=== PATIENT | male | born 1995 | race Two or more races ===

== ENCOUNTER 2016-10-20 10:41 | Emergency (ER) | payer SELFPAY ==
[~2016-10-20] VITALS: Ht 167.6 cm; Wt 100.0 kg
[2016-10-20 10:42] VITALS: BP 135/91; PULSE 102; RESP 14; TEMP 97.5; O2SAT 97
--- NOTE | 2016-10-20 12:02 | PD ---
HPI Chief Complaint: Pain: Acute or Chronic Time Seen by Provider: 11:58 Travel History International Travel<30 days: No Contact w/Intl Traveler<30days: No Traveled to known affect area: No History of Present Illness HPI 27-year-old male presents to the emergency department for evaluation of several issues. First, the patient states he has had chronic back pain for several years. The last time he saw his primary care physician was 2 years ago for this. No intervention was completed and he never returned for his back pain. Patient denies any new or recent injury. He states the pain has been worsening. Patient also states he has had intermittent neck pain and intermittent headaches over the past 2 days. He currently rates a right frontal headache 5/10. He states the neck pain is resolved at this time. He states he gets intermittent paresthesias to the bilateral upper extremities, but has not at this time. He states his back pain is worse with walking. He denies any weakness or syncope. He denies any slurred speech or difficulty speaking. Patient states he has a history of headaches, but this one is different. He states the headache is resolving on its own. He took ibuprofen yesterday for his pain, but has not taken any medications today. The patient denies any history of IV drug use. No fevers or chills. No loss of bowel or bladder control. No saddle anesthesias. Patient has been ambulatory. [facility] Past Medical History Tetanus Vaccination: > 5 Years Social History Alcohol Use: Yes Tobacco Use: No Substance Use: No Allergies-Medications (Allergen,Severity, Reaction): Coded Allergies: No Known Allergies (Unverified , 10/20/16) Reported Meds & Prescriptions Reported Meds & Active Scripts Active No Active Prescriptions or Reported Medications Review of Systems Except as stated in HPI: all other systems reviewed are Neg Physical Exam Narrative GENERAL: Well-developed well-nourished male patient, ambulatory. Afebrile. SKIN: Warm and dry. HEAD: Normocephalic. Atraumatic. EYES: No scleral icterus. No injection or drainage. ENT: Mucosa pink and moist. No erythema or exudates. No uvular edema. No uvular , palatal, or tonsillar deviation. Airway patent. Nasal turbinates appear normal without nasal blood, purulent drainage or septal hematoma. Bilateral tympanic membranes are clear without erythema or perforation. NECK: Supple, trachea midline. No JVD or lymphadenopathy. CARDIOVASCULAR: Regular rate and rhythm without murmurs, gallops, or rubs. RESPIRATORY: Breath sounds equal bilaterally. No accessory muscle use. Lungs sounds are clear to auscultation. GASTROINTESTINAL: Abdomen soft, non-tender, nondistended. MUSCULOSKELETAL: No cyanosis, or edema. Bilateral upper and lower extremity strength 5/5. All extremities are neurovascularly intact. BACK: No obvious deformity. No CVA tenderness. Patient has tenderness over midline lumbar spine and bilateral lumbar paraspinal musculature. Straight leg raise is positive bilaterally. No midline cervical spine tenderness. Full range of motion of cervical spine without pain or stiffness. NEUROLOGICAL: Awake and alert. Cranial nerves II through XII intact. Motor and sensory grossly within normal limits. Five out of 5 muscle strength in all muscle groups. Normal speech. Data Data Last Documented VS Vital Signs Date Time Temp Pulse Resp B/P Pulse Ox O2 Delivery O2 Flow Rate FiO2 10/20/16 10:42 97.5 102 14 135/[address] Brain W/O Iv Contrast(Rout) (10/20/16 ) [facility] Medical Decision Making Medical Screen Exam Complete: Yes Emergency Medical Condition: Yes Medical Record Reviewed: Yes Interpretation(s) Last Impressions Head CT 10/20/16 0000 Signed Impressions: Service Date/Time: Thursday, October 20, 2016 12:25 - CONCLUSION: Normal examination. Dao Mendosa MD Differential Diagnosis Chronic back pain versus muscle strain versus muscle spasm versus tension-type headache versus migraine headache versus intracranial abnormality Narrative Course 21-year-old male presents to the emergency department for several issues including chronic back pain, neck pain, headache. Patient states the neck pain is resolved at this time. He states he currently has a right frontal headache that is 5/10 and resolving on its own. Neurological exam is nonfocal and demonstrates no acute abnormality. Patient has no chronic medical problems other than back pain. He has not followed up with his primary care physician. CT scan of the brain is ordered and pending. CT of the brain shows no acute abnormality. Patient will be given Toradol 60 mg IM and Norflex 60 mg IM. He'll be discharged prescription for diclofenac and Robaxin. He is encouraged to follow-up with his primary care physician. He is to return for any acute worsening of symptoms. Diagnosis Primary Impression: Chronic low back pain Qualified Code: M54.5 - Chronic low back pain without sciatica, unspecified back pain laterality Additional Impression: Headache Qualified Code: G44.209 - Acute non intractable tension-type headache Referrals: Primary Care Physician call for appointment Patient Instructions: Acute Headache (ED), Chronic Back Pain (ED), General Instructions Departure Forms: Tests/Procedures, Work Release Enter return to work date: Oct 22, 2016 Additional Instructions: Take diclofenac as directed as needed with food for pain. Take Robaxin as directed as needed. Follow-up with your primary care physician. Return to the emergency department for any acute worsening of symptoms. Med/Other Pt SpecificInfo: Prescription(s) given Scripts Methocarbamol (Robaxin)750 Mg [id number] Mg PO TID PRN (MUSCLE SPASM) #21 TAB Ref 0 Prov:Kate Jerez 10/20/16 Diclofenac Potassium 50 Mg Tab50 Mg PO TID PRN (PAIN SCALE 1 TO 10) #21 TAB Ref 0 Prov:Kate Jerez 10/20/16 Disposition: 01 DISCHARGE HOME Condition: Stable Kate Jerez Oct 20, 2016 12:02
--- NOTE | 2016-10-20 12:38 | RADRPT ---
EXAM DATE/TIME: 10/20/2016 12:25 [facility] COMPARISON: No previous studies available for comparison. INDICATIONS : Patient complains of neck and back pain with headache RADIATION DOSE: 40.85 CTDIvol (mGy) MEDICAL HISTORY : None SURGICAL HISTORY : None. ENCOUNTER: Initial ACUITY: 1 day PAIN SCALE: 6/10 LOCATION: distal TECHNIQUE: Multiple contiguous axial images were obtained of the head. Using automated exposure control and adj ustment of the mA and/or kV according to patient size, radiation dose was kept as low as reasonably a chievable to obtain optimal diagnostic quality images. FINDINGS: CEREBRUM: The ventricles are normal for age. No evidence of midline shift, mass lesion, hemorrhage or acute in farction. No extra-axial fluid collections are seen. POSTERIOR FOSSA: The cerebellum and brainstem are intact. The 4th ventricle is midline. The cerebellopontine angle i s unremarkable. EXTRACRANIAL: The visualized portion of the orbits is intact. SKULL: The calvaria is intact. No evidence of skull fracture. CONCLUSION: Normal examination. Dao Mendosa MD on October 20, 2016 at 12:35 Board Certified Radiologist. This report was verified electronically.
[2016-10-20] MEDS ORDERED: DICL50TA PO (12:58)
[2016-10-20] MEDS ORDERED: ROBA750T PO (12:58)
[2016-10-20] MEDS ORDERED: KETOROLAC TROMETHAMINE 60 MG/2 ML (IM) VIAL IM ONE (13:00)
[2016-10-20] MEDS ORDERED: ORPHENADRINE INJ 60 MG/2 ML AMP IM ONE (13:00)
== END 2016-10-20 13:17 | disposition home or self-care (01) ==
LOC: NEPB 10:41
DX: M54.5 Low back pain (principal); R51 Headache; M54.2 Cervicalgia
CPT/HCPCS: 70450; 96372; 99283; J1885; J2360